=== PATIENT | female | born 1985 | race African-American/Black ===

== ENCOUNTER 2020-02-08 19:00 | Emergency (ER) | payer SELFPAY ==
[~2020-02-08] VITALS: Ht 162.6 cm; Wt 73.0 kg
[2020-02-08 19:38] VITALS: BP 112/76
[2020-02-08 20:05] LABS: Urine Bacteria MANY /hpf (None Seen); Urine Blood 1+ /uL (Negative); Urine Hyaline Cast FEW /lpf (0 - 2); Urine Mucus FEW (None Seen); Urine Specific Gravity 1.009 (1.001-1.035); Urine WBC 14 /hpf (0 - 5)
== END 2020-02-08 23:06 | disposition left against medical advice (07) ==
LOC: ER 19:00
DX: R10.9 Unspecified abdominal pain (principal); Z53.21 Procedure and treatment not carried out due to patient leaving prior to being seen by health care provider
CPT/HCPCS: 81001